=== PATIENT | male | born 2000 | race Caucasian/White ===

== ENCOUNTER 2019-03-27 10:44 | Emergency (ER) | payer OTHER ==
[~2019-03-27] VITALS: Ht 175.2 cm; Wt 59.0 kg
== END 2019-03-27 12:00 | disposition home or self-care (01) ==
LOC: ED 10:44
DX: S05.01XA Injury of conjunctiva and corneal abrasion without foreign body, right eye, initial encounter (principal); H10.31 Unspecified acute conjunctivitis, right eye; X58.XXXA Exposure to other specified factors, initial encounter; Y93.89 Activity, other specified; Y92.89 Other specified places as the place of occurrence of the external cause; Y99.8 Other external cause status